=== PATIENT | male | born 1960 | race Caucasian/White ===

== ENCOUNTER 2017-10-10 07:03 | Emergency (ER) | payer BC ==
[~2017-10-10] VITALS: Ht 175.3 cm; Wt 139.0 kg
[2017-10-10] MEDS ORDERED: HYDROcodone/acetaminophen 5mg/325mg tablet PO ONE (08:20)
[2017-10-10 08:48] LABS: CLARITY,URINE CLEAR (Clear); COLOR,URINE YELLOW (Yellow); GLUCOSE, URINE NEGATIVE (Neg); KETONES,URINE NEGATIVE (Neg); LEUKOCYTE ESTERASE ,URINE NEGATIVE (Neg); NITRITES, URINE NEGATIVE (Neg); OCCULT BLOOD,URINE SMALL (Neg); PH,URINE 5.5 (4.8-8.0); PROTEIN,URINE NEGATIVE (Neg); UROBILINOGEN,URINE 0.2 E.U/dL (0.2-1.0)
[2017-10-10 08:49] LABS: UA COLLECTION TYPE CLN CATCH MIDSTREAM
[2017-10-10 08:55] LABS: BACTERIA,URINE NONE SEEN /HPF (Neg); MUCUS STRANDS NONE SEEN /LPF (Neg); RBC,URINE 0-2 /HPF (0-2); SQUAMOUS EPITHELIAL CELL,UR FEW /LPF (FEW); WBC,URINE 0-4 /HPF (0-4)
[2017-10-10 09:09] LABS: BASOPHILS # (AUTO) 0.1 X10'3 (0-0.2); BASOPHILS % (AUTO) 1.1 % (0-1); EOSINOPHILS # (AUTO) 0.2 X10'3 (0-0.9); EOSINOPHILS % (AUTO) 2.3 % (0-6); HEMATOCRIT 48.7 % (42.0-52.0); HEMOGLOBIN 16.5 g/dl (14.0-17.9); LYMPHOCYTES # (AUTO) 1.9 X10'3 (1.1-4.8); LYMPHOCYTES % (AUTO) 19.1 % (21-51); MEAN CORPUSCULAR HEMOGLOBIN 31.8 PG (27.0-31.0); MEAN CORPUSCULAR HGB CONC 33.9 % (33.0-36.5); MEAN CORPUSCULAR VOLUME 93.6 FL (78-98); MEAN PLATELET VOLUME 8.2 FL (7.4-10.4); MONOCYTES # (AUTO) 0.7 X10'3 (0-0.9); MONOCYTES % (AUTO) 6.9 % (2-12); NEUTROPHILS # (AUTO) 7.1 X10'3 (1.8-7.7); NEUTROPHILS % (AUTO) 70.6 % (42-75); PLATELET COUNT 215 X10'3 (140-440); RED CELL DISTRIBUTION WIDTH 13.9 % (11.5-14.5); WHITE BLOOD COUNT 10.1 X10'3 (4.5-11.0)
[2017-10-10 09:11] VITALS: BP 128/86
[2017-10-10] MEDS ORDERED: cyclobenzaprine 10mg tablet PO ONE (09:15)
[2017-10-10] MEDS ORDERED: naproxen 500mg tablet PO ONE (09:15)
[2017-10-10 09:22] LABS: PARTIAL THROMBOPLASTIN TIME 26 SECONDS (22-32); PROTHROMBIN TIME 10.6 SECONDS (9.0-12.0)
[2017-10-10 09:30] LABS: ALANINE AMINOTRANSFERASE 31 U/L (12-78); ALBUMIN 3.8 G/DL (3.4-5.0); ALKALINE PHOSPHATASE 73 IU/L (46-116); ANION GAP 10 (8-16); ASPARTATE AMINO TRANSFERASE 24 U/L (10-37); BILIRUBIN,TOTAL 0.3 MG/DL (0.1-1.0); BLOOD UREA NITROGEN 13 MG/DL (7-18); BUN/CREATININE RATIO 13.1 (5.4-32.0); CALCIUM 9.1 MG/DL (8.5-10.1); CHLORIDE 106 MMOL/L (99-107); CREATININE 0.99 MG/DL (0.60-1.10); ETHANOL 0.135 GM/DL (0.0-0.010); GLUCOSE 102 MG/DL (70-104); POTASSIUM 4.3 MMOL/L (3.5-5.1); SODIUM 144 MMOL/L (135-145); TOTAL CARBON DIOXIDE 28.3 MMOL/L (24-32); TOTAL PROTEIN 7.8 G/DL (6.4-8.2); eGFR 77 ML/MIN
[2017-10-10] MEDS ORDERED: NAPR-56 PO (09:54)
[2017-10-10] MEDS ORDERED: CYCL-1 PO (09:55)
[2017-10-10] MEDS ORDERED: HYDR-569 PO (09:55)
== END 2017-10-10 10:06 | disposition home or self-care (01) ==
LOC: ER 07:03
DX: S00.01XA Abrasion of scalp, initial encounter (principal); M54.5 Low back pain; M54.2 Cervicalgia; I10 Essential (primary) hypertension; F10.129 Alcohol abuse with intoxication, unspecified; R51 Headache; Z98.890 Other specified postprocedural states; Z79.899 Other long term (current) drug therapy; W18.39XA Other fall on same level, initial encounter; Y93.89 Activity, other specified; Y92.89 Other specified places as the place of occurrence of the external cause; Y99.8 Other external cause status; Y90.0 Blood alcohol level of less than 20 mg/100 ml
CPT/HCPCS: 36415; 70450; 71045; 72125; 72131; 80053; 80320; 81001; 85025; 85610; 85730; 99285; L0172

== ENCOUNTER 2023-04-15 23:10 | Inpatient (IN) | payer BC, OTHER ==
[~2023-04-15] VITALS: Ht 177.8 cm; Wt 138.6 kg
[~2023-04-15 23:10] MED LIST: CYCL-1 PO; HYDR-4383 PO
[2023-04-15 23:30] LABS: BASOPHILS # (AUTO) 0.1 X10'3 (0-0.2); BASOPHILS % (AUTO) 0.5 % (0-1); EOSINOPHILS # (AUTO) 0.4 X10'3 (0-0.9); EOSINOPHILS % (AUTO) 2.6 % (0-6); HEMATOCRIT 45.6 % (42.0-52.0); HEMOGLOBIN 15.6 g/dl (14.0-17.9); LYMPHOCYTES # (AUTO) 5.3 X10'3 (1.1-4.8); LYMPHOCYTES % (AUTO) 34.4 % (21-51); MEAN CORPUSCULAR HEMOGLOBIN 31.7 PG (27.0-31.0); MEAN CORPUSCULAR HGB CONC 34.3 g/dL (33.0-36.5); MEAN CORPUSCULAR VOLUME 92.5 FL (78-98); MEAN PLATELET VOLUME 7.5 FL (7.4-10.4); MONOCYTES # (AUTO) 1.2 X10'3 (0-0.9); MONOCYTES % (AUTO) 7.6 % (2-12); NEUTROPHILS # (AUTO) 8.4 X10'3 (1.8-7.7); NEUTROPHILS % (AUTO) 54.9 % (42-75); PLATELET COUNT 218 X10'3 (140-440); RED BLOOD COUNT 4.94 X10'6 (4.70-6.10); RED CELL DISTRIBUTION WIDTH 13.3 % (11.5-14.5); WHITE BLOOD COUNT 15.4 X10'3 (4.5-11.0)
[2023-04-15 23:42] LABS: ALANINE AMINOTRANSFERASE 28 U/L (12-78); ALBUMIN 3.9 G/DL (3.4-5.0); ALKALINE PHOSPHATASE 97 IU/L (46-116); ANION GAP 3 (8-16); ASPARTATE AMINO TRANSFERASE 18 U/L (10-37); BILIRUBIN,TOTAL 0.4 MG/DL (0.1-1.0); BLOOD UREA NITROGEN 23 MG/DL (7-18); CALCIUM 9.4 MG/DL (8.5-10.1); CHLORIDE 103 MMOL/L (99-107); GLUCOSE 128 MG/DL (70-104); POTASSIUM 3.8 MMOL/L (3.5-5.1); SODIUM 138 MMOL/L (135-145); TOTAL CARBON DIOXIDE 31.9 MMOL/L (24-32); TOTAL PROTEIN 7.7 G/DL (6.4-8.2); eGFR 75 ML/MIN
[2023-04-15 23:50] LABS: PRO BRAIN NATRIURETIC PEPTIDE 42 PG/ML (0-125)
[2023-04-16] VITALS (10 sets, daily range): BP systolic 112–121; BP diastolic 53–63; PULSE 68–86; RESP 14–19; TEMP 98–98.2; O2SAT 91–95
[2023-04-16] MEDS ORDERED: NO HOME MEDS (00:27)
[2023-04-16] MEDS ORDERED: normal saline 1000ml 1,000 ML IV ONE (00:40)
[2023-04-16] MEDS ORDERED: aspirin 325mg tablet PO ONE (00:40)
[2023-04-16] MEDS ORDERED: ondansetron 4mg rapidly disintigrating tab PO ONE (00:45)
[2023-04-16] MEDS ORDERED: famotidine/PF 10 mg/ml inj IV ONE (00:45)
[2023-04-16] MEDS ORDERED: mag hydrox/Alum hydrox/simeth 30ml oral suspension PO ONE (00:45)
[2023-04-16] MEDS ORDERED: iohexol 350MG/ML 100ml bottle IV ONE (00:45)
[2023-04-16] MEDS ORDERED: HYDROcodone/acetaminophen 5mg/325mg tablet PO PRN (02:35)
[2023-04-16] MEDS ORDERED: metoprolol tartrate 1mg/ml inj IV PRN (02:35)
[2023-04-16] MEDS ORDERED: magnesium Cl slow-release 64mg tablet PO PRN (02:35)
[2023-04-16] MEDS ORDERED: regadenoson 0.4mg/5ml syringe IV PRN (02:35)
[2023-04-16] MEDS ORDERED: magnesium hydroxide 30ml (MOM) UD suspension PO PRN (02:35)
[2023-04-16] MEDS ORDERED: nitroGLYCERIN 0.4mg SUBLingual tab SL PRN (02:35)
[2023-04-16] MEDS ORDERED: mag hydrox/Alum hydrox/simeth 30ml oral suspension PO PRN (02:35)
[2023-04-16] MEDS ORDERED: aminophylline 250mg/10ml inj. IV PRN (02:35)
[2023-04-16] MEDS ORDERED: HYDROcodone/acetaminophen 10/325mg tab PO PRN (02:35)
[2023-04-16] MEDS ORDERED: potassium Cl 40MEQ/1/2NS 520ml 520 ML IV PRN (02:35)
[2023-04-16] MEDS ORDERED: ondansetron/PF 4mg/2ml inj IV PRN (02:35)
[2023-04-16] MEDS ORDERED: magnesium 4gm in 100ml NS 100 ML IV PRN (02:35)
[2023-04-16] MEDS ORDERED: potassium Cl 20 mEq SR tablet PO PRN ×2 (02:35)
[2023-04-16] MEDS ORDERED: acetaminophen 325mg tablet PO PRN ×2 (02:35)
[2023-04-16] MEDS ORDERED: magnesium 2GM in 50ml NS 50 ML IV PRN (02:35)
[2023-04-16] MEDS ORDERED: morphine 2 MG/ML inj. syringe IV PRN ×2 (02:35)
[2023-04-16] MEDS: normal saline 1000ml 1,000 ML IV SCH ×2 (02:54→17:00)
[2023-04-16] MEDS ORDERED: CefTRIAXone 2gm/D5W 50ml BAG 50 ML IV ONE (03:10)
[2023-04-16] MEDS: docusate sod 100mg capsule PO SCH ×3 (08:00→20:00)
--- NOTE | 2023-04-16 11:24 | NUR ---
PT TO [facility] FOR STRESS TEST, ON MONITOR WITH RN. PT IS ABLE TO TRANSFER SELF WITH MIN ASSIST FROM BED TO WHEELCHAIR. PT IS GSC 15, A/O X3, RESP EVEN AND UNLABORED, SKIN P/W/D
--- NOTE | 2023-04-16 13:12 | NUR ---
pt back to room 12 in ER, waiting for results of stress test, report to Lissa WONG
[2023-04-16] MEDS ORDERED: DOXY25TA58 PO (18:51)
[2023-04-16] MEDS ORDERED: VITA-325 PO (18:53)
[2023-04-16] MEDS ORDERED: ASCO500C17 PO (18:54)
[2023-04-16] MEDS ORDERED: VITA-268 PO (18:54)
[2023-04-16] MEDS ORDERED: VITA400T10 PO (18:55)
[2023-04-16] MEDS ORDERED: CHOL10006 PO (18:55)
[2023-04-16] MEDS ORDERED: PHYT100T PO (18:55)
[2023-04-16] MEDS ORDERED: TURM500C4 PO (18:56)
[2023-04-16] MEDS ORDERED: OMEG-5 PO (18:57)
[2023-04-16] MEDS ORDERED: UBID200C18 PO (18:57)
[2023-04-16] MEDS ORDERED: RESV50CA PO (18:58)
[2023-04-16] MEDS ORDERED: BORON PO (18:59)
[2023-04-16] MEDS ORDERED: enoxaparin 40mg/0.4ml syringe SQ SCH (20:00)
[2023-04-17 02:00] VITALS: BP 125/64; PULSE 71; RESP 16; TEMP 97.8; O2SAT 91
--- NOTE | 2023-04-17 06:52 | NUR ---
Report received from LAWRENCE Mendoza. Pt requested [facility] and has been notified. IV fluids DC Signed: 04/17/23 at 0654 by Brandi Escudero - Samira FUNEZ
--- NOTE | 2023-04-17 07:14 | NUR ---
AMA form signed. Saline locked IVs, R and L with cath intact removed. Tele removed. Risks and benefits explained to pt. Pt dressed himself and walked out AMA at 0717. Signed: 04/17/23 at 0718 by Brandi Escudero - Samira TERRY-NU
== END 2023-04-17 07:17 | disposition left against medical advice (07) | DRG 313 ==
LOC: ER 23:10 → ED HOLD 04-16 02:40 → EDBEDREQ 04-16 17:48 → PCU 3S 04-16 19:00
PROVIDERS: ADMIT Internal Medicine; ATTEND Internal Medicine
PROC: B32T1ZZ Computerized Tomography (CT Scan) of Left Pulmonary Artery using Low Osmolar Contrast (ICD-10-PCS; principal; 2023-04-16)
PROC: B3201ZZ Computerized Tomography (CT Scan) of Thoracic Aorta using Low Osmolar Contrast (ICD-10-PCS; 2023-04-16)
PROC: B32S1ZZ Computerized Tomography (CT Scan) of Right Pulmonary Artery using Low Osmolar Contrast (ICD-10-PCS; 2023-04-16)
PROC: 4A02XM4 Measurement of Cardiac Total Activity, External Approach (ICD-10-PCS; 2023-04-16)
PROC: 3E033HZ Introduction of Radioactive Substance into Peripheral Vein, Percutaneous Approach (ICD-10-PCS; 2023-04-16)
DX: R07.9 Chest pain, unspecified (principal); Z68.41 Body mass index [BMI] 40.0-44.9, adult; E66.01 Morbid (severe) obesity due to excess calories; I10 Essential (primary) hypertension; Z66 Do not resuscitate; Z53.29 Procedure and treatment not carried out because of patient's decision for other reasons; D72.829 Elevated white blood cell count, unspecified; Z20.822 Contact with and (suspected) exposure to COVID-19; R06.02 Shortness of breath; Z79.899 Other long term (current) drug therapy
CPT/HCPCS: 36415; 71045; 71275; 78452; 80053; 83605; 83880; 84145; 84484; 85025; 85651; 87040; 87081; 87811; 93005; 93017; 93306; 96361; 96374; 99285; A9500; G0378; J0696; J1650; J2785; J3490; J7030; Q9967